=== PATIENT | female | born 1955 | race Caucasian/White ===

== ENCOUNTER 2016-11-27 14:16 | Emergency (ER) | payer OTHER ==
[~2016-11-27] VITALS: Ht 157.5 cm; Wt 77.1 kg
[2016-11-27 14:42] VITALS: BP 149/93
[2016-11-27] MEDS ORDERED: IBUPROFEN400 MG ORAL (14:49)
--- NOTE | 2016-11-27 14:49 | Emergency Room Report ---
History of Present Illness General Chief Complaint: Multiple Trauma/Fall Source: Patient Present Illness HPI 61-year-old female presents emergency department complaining of bruising to the left medial knee, soreness in the right wrist, and left-sided low back pain status post mechanical slip and fall at work. Patient denies hitting her head she denies loss of consciousness she rates her pain is 4/10 in severity. Patient states that she does not have much pain in the right wrist however she does have a history of arthritis and is worried he may be sore tomorrow. Patient denies midline back pain. Patient states she did not take any medications for her pain. Patient denies exacerbation upon movement of the affected joints. Patient states pain is exacerbated upon palpation and is localized superficially to the bruise of the left knee. Denies numbness tingling or loss of sensation or gross motor movements of the extremities, incontinence of bowel or bladder. Denies CP, Palpitations, LOC, AMS, dizziness, Changes in Vision, Sensation, paresthesias, or a sudden severe headache. Allergies: Coded Allergies: TETRACYCLINE (Verified Allergy, Unknown, 07/11/15) Patient History Past Medical History: see triage record Past Surgical History: none Pertinent Family History: none Last Menstrual Period: na Now: No Immunizations: UTD Reviewed Nursing Documentation: PMH: Agreed, PSxH: Agreed Nursing Documentation-PMH Past Medical History: No History, Except For Hx Cardiac Problems: No - Osteoarthritis, hearing loss (right sided) Hx Hypertension: No Hx Pacemaker: No Hx Asthma: No Hx COPD: No Hx Diabetes: No Hx Cancer: No Hx Gastrointestinal Problems: No Hx Dialysis: No Hx Neurological Problems: Yes Hx Cerebrovascular Accident: Yes Hx Seizures: No Review of Systems All Other Systems: negative except mentioned in HPI Physical Exam Vital Signs Date Time Temp Pulse Resp B/P Pulse Ox O2 Delivery O2 Flow Rate FiO2 11/27/16 14:18 98.1 78 18 145/96 98 Room Air Sp02 EP Interpretation: reviewed, normal General Appearance: no apparent distress, alert, GCS 15, non-toxic Head: normocephalic, atraumatic Eyes: bilateral eye PERRL, bilateral eye normal inspection ENT: hearing grossly normal, normal pharynx, no angioedema, normal voice Neck: full range of motion, no meningismus, no bony tend, supple/symm/no masses Respiratory: chest non-tender, lungs clear, normal breath sounds, speaking full sentences Cardiovascular #1: regular rate, rhythm, no edema, normal capillary refill Musculoskeletal: back normal, gait/station normal, normal range of motion, tender - left lumbar paraspinal ttp, no midline ttp, no obvious deformity or erythema, there is 1cm bruise noted to the anterior medial knee, not over bony anatomy with only superficial ttp, no bony ttp, no increased laxity, FROM. no bruises, obvious deformity or swelling to the right wrist, from with minimal pain, pt. is NVI. Neurologic: alert, oriented x3, responsive, motor strength/tone normal, sensory intact, speech normal, other - no evidence of incontinence Psychiatric: judgement/insight normal, memory normal, mood/affect normal Skin: normal color, no rash, warm/dry, well hydrated, other - 1cm bruise noted to the anterior medial knee, not over bony anatomy Medical Decision Making PA Attestation Dr. Fontenot is my supervising Physician whom patient management has been discussed with. Diagnostic Impression: Primary Impression: Contusion of knee, left Additional Impressions: Muscle strain Right wrist sprain Qualified Codes: S63.501A - Unspecified sprain of right wrist, initial encounter ER Course 61-year-old female presents emergency department complaining of bruising to the left medial knee, soreness in the right wrist, and left-sided low back pain status post mechanical slip and fall at work. Patient denies hitting her head she denies loss of consciousness she rates her pain is 4/10 in severity. Patient states that she does not have much pain in the right wrist however she does have a history of arthritis and is worried he may be sore tomorrow. Patient denies midline back pain. Patient states she did not take any medications for her pain. Patient denies exacerbation upon movement of the affected joints. Patient states pain is exacerbated upon palpation and is localized superficially to the bruise of the left knee. Denies numbness tingling or loss of sensation or gross motor movements of the extremities, incontinence of bowel or bladder. Ddx considered but are not limited to Fracture, dislocation, contusion, Sprain/ Strain/Spasm. Vital signs: are WNL, pt. is afebrile H&PE are most consistent with contusion of soft tissues, back muscle strain, and sprain of the right wrist. no PE evidence to suggest acute fractures or dislocations, no bony tenderness, FROM. ORDERS: - X-ray - Not warranted at this time as patient does not have bony tenderness to palpation no obvious deformities. ED INTERVENTIONS: - IBU PO - Right wrist Splint applied by biological technical officer. Pt. remains neurovascularly intact. DISCHARGE: At this time pt. is stable for d/c to home. Will provide printed patient care instructions, and any necessary prescriptions. Care plan and follow up instructions have been discussed with the patient prior to discharge. Last Vital Signs Date Time Temp Pulse Resp B/P Pulse Ox O2 Delivery O2 Flow Rate FiO2 11/27/16 14:42 97.9 82 18 149/93 99 Room Air Disposition: HOME, SELF-CARE Condition: Stable Scripts Ibuprofen* (MOTRIN*) 400 Mg Tablet 400 MG ORAL THREE TIMES A DAY, #30 TAB 0 Refills Prov: Catie Feliciano 11/27/16 Departure Forms: Return to Work Return to Work Date: November 28, 2016 Work Restrictions: No Heavy Lifting, No Prolonged Standing, Desk Work Only Other Restrictions: light duty x 1 week, may return sooner if feeling better. Return to Full Activity: Dec 05, 2016 Patient Instructions: Contusion, [id number], Wrist Sprain Additional Instructions: Take medications as directed. Follow up with PCP in 3-5 days Return sooner to ED if new symptoms occur, or current symptoms become worse. - Please note that this Emergency Department Report was dictated using [employer] supervisor technology software, occasionally this can lead to erroneous entry secondary to interpretation by the dictation equipment. Catie Feliciano November 27, 2016 14:49
[2016-11-27 15:31] VITALS: BP 149/93
== END 2016-11-27 15:31 | disposition home or self-care (01) ==
LOC: EMR 14:51
DX: S80.02XA Contusion of left knee, initial encounter (principal); S63.501A Unspecified sprain of right wrist, initial encounter; M54.5 Low back pain; W01.0XXA Fall on same level from slipping, tripping and stumbling without subsequent striking against object, initial encounter; Y93.9 Activity, unspecified; Y99.0 Civilian activity done for income or pay; Z88.8 Allergy status to other drugs, medicaments and biological substances; H91.91 Unspecified hearing loss, right ear; M19.90 Unspecified osteoarthritis, unspecified site; Z86.73 Personal history of transient ischemic attack (TIA), and cerebral infarction without residual deficits
CPT/HCPCS: 29260; 99283